=== PATIENT | female | born 1945 | race Caucasian/White ===

== ENCOUNTER → 2017-11-20 | Outpatient (CLI) | payer MEDICARE, OTHER ==
[~2017-11-20] MED LIST: AMBIEN 10MG10 MG PO; CALCIUM600 M2 PO; CELEBREX 200MG200 MG PO; ELITE MAGNESIUM1 TAB PO; FLONASE NASAL S16 GM NS; INDERAL LA 80MG80 MG PO; MUCINEX 60600 MG/TA1 PO; NEXIUM 40MG40 MG PO; PERCOCET 325 MG1 TA2 PO; ROBAXIN 50500 MG/TAB PO; SINGULAIR 110 MG/TAB PO; ULTRAM 50MG TAB50 MG PO; VITAMIN D1000 IU PO; ZYRTEC 10MG10 MG PO
== END ==
LOC: MC.RAD 11:10
DX: Z12.31 Encounter for screening mammogram for malignant neoplasm of breast (principal)

== ENCOUNTER 2018-06-27 09:55 | Emergency (ER) | payer MEDICARE, OTHER ==
[~2018-06-27] VITALS: Ht 160 cm; Wt 90.9 kg
[2018-06-27 09:59] VITALS: TEMP 98
[2018-06-27 11:37] VITALS: BP 145/68; PULSE 71
== END 2018-06-27 11:37 | disposition home or self-care (01) ==
LOC: COL.ER 09:55
DX: M54.6 Pain in thoracic spine (principal); M79.7 Fibromyalgia; G89.29 Other chronic pain; M54.5 Low back pain; Z79.51 Long term (current) use of inhaled steroids

== ENCOUNTER → 2019-05-04 | Outpatient (CLI) | payer MEDICARE, OTHER | LOC: MC.RAD 10:55 | DX: Z12.31 Encounter for screening mammogram for malignant neoplasm of breast (principal) ==

== ENCOUNTER → 2021-11-28 | Outpatient (CLI) | payer MEDICARE, OTHER | LOC: MC.RAD 11:14 | DX: Z12.31 Encounter for screening mammogram for malignant neoplasm of breast (principal) ==

== ENCOUNTER 2022-07-03 09:21 | Inpatient (IN) | payer MEDICARE, OTHER ==
[~2022-07-03] VITALS: Ht 160 cm; Wt 84.1 kg
[2022-07-03] VITALS (335 sets, daily range): BP systolic 144; BP diastolic 71; PULSE 64; TEMP 97.9; O2SAT 92–100
[2022-07-03 09:52] LABS: BASO # 0.1 K/mm3 (0.0-0.2); BASO % 0.7 % (0.0-2.0); EOS # 0.2 K/mm3 (0.0-0.7); EOS % 2.7 % (0.0-4.0); GRAN # 4.1 K/mm3 (1.4-6.5); GRAN % 55.7 % (42.2-75.2); HEMATOCRIT 42.2 % (37.0-47.0); HEMOGLOBIN 14.4 g/dl (12.5-16.0); LYMPH # 2.4 K/mm3 (1.2-3.4); LYMPH % 32.6 % (20.0-51.0); MEAN CELL VOLUME 92 fl (80.0-100.0); MEAN CORPUSCULAR HEMOGLOBIN 31 pg (27-31); MEAN CORPUSCULAR HGB CONC 34 g/dl (33.0-37.0); MEAN PLATELET VOLUME 10.8 fl (7.4-10.4); MONO # 0.6 K/mm3 (0.1-0.6); PLATELET COUNT 272 K/mm3 (130-400); RED BLOOD COUNT 4.59 M/mm3 (4.10-5.30); REDCELL DISTRIBUTION WIDTH-CV 13.3 % (11.5-14.5)
[2022-07-03 10:07] LABS: CREATININE, serum 0.67 mg/dL (0.57-1.11); POTASSIUM 3.8 mmol/L (3.5-4.5)
[2022-07-03 10:16] LABS: TROPONIN-I 0.056 ng/mL (0.00-0.033)
[2022-07-03] MEDS ORDERED: ATARAX 25MG25 MG/TAB PO (12:42)
[2022-07-03 13:20] LABS: PROTHROMBIN TIME 11.5 SECONDS (9.7-12.8)
[2022-07-03 13:23] LABS: PARTIAL THROMBOPLASTIN TIME 32.4 SECONDS (26.0-37.0)
[2022-07-03 13:55] LABS: CREATINE KINASE 36 U/L (29-168); MAGNESIUM 1.8 mg/dL (1.6-2.6)
[2022-07-03 14:03] LABS: TROPONIN-I < 0.010 ng/mL (0.00-0.033)
--- NOTE | 2022-07-03 18:20 | NUR ---
PT ADMITTED FROM ED WITH CP AND HTN. PT AMBULATED TO BED. PT IS AXOX4. PT SET UP TO MONITOR AND TELE. PT IS SR ON TELE. PT OFF CARDENE AND ON HEPARIN AT 1000 UNITS/HR. PT ORIENTED TO ROOM AND FLOOR. PT INSTRUCTED TO CALL WITH ALL NEEDS AND NOT TO GET UP ALONE.
[2022-07-04] VITALS (646 sets, daily range): BP systolic 143–178; BP diastolic 72–82; PULSE 64–112; TEMP 97.8–98; O2SAT 92–100
--- NOTE | 2022-07-04 01:12 | NUR ---
REPORT RECEIVED FROM GANGA CHATMAN. ASSUMED CARE OF PT AT THIS TIME. PT CURRENTLY ASLEEP IN BED. VSS. WILL CONTINUE TO MONITOR.
[2022-07-04 03:31] LABS: BASO % 0.5 % (0.0-2.0); EOS # 0.2 K/mm3 (0.0-0.7); EOS % 2.7 % (0.0-4.0); GRAN # 3.9 K/mm3 (1.4-6.5); GRAN % 47.1 % (42.2-75.2); HEMATOCRIT 39.1 % (37.0-47.0); HEMOGLOBIN 13.5 g/dl (12.5-16.0); LYMPH # 3.4 K/mm3 (1.2-3.4); LYMPH % 41.1 % (20.0-51.0); MEAN CELL VOLUME 91 fl (80.0-100.0); MEAN CORPUSCULAR HEMOGLOBIN 32 pg (27-31); MEAN CORPUSCULAR HGB CONC 35 g/dl (33.0-37.0); MEAN PLATELET VOLUME 10.9 fl (7.4-10.4); MONO # 0.7 K/mm3 (0.1-0.6); MONO % 8.4 % (1.7-9.3); PLATELET COUNT 236 K/mm3 (130-400); RED BLOOD COUNT 4.28 M/mm3 (4.10-5.30); REDCELL DISTRIBUTION WIDTH-CV 13.2 % (11.5-14.5)
[2022-07-04 04:02] LABS: ANION GAP 11 mmol/L (7-16); BLOOD UREA NITROGEN 13 mg/dL (10-20); CALCIUM 8.4 mg/dL (8.4-10.2); CARBON DIOXIDE 24 mmol/L (23-31); CHLORIDE 107 mmol/L (98-107); CHOLESTEROL 180 mg/dL (0-199); CHOLESTEROL RISK RATIO 5.1; CREATININE, serum 0.59 mg/dL (0.57-1.11); GLUCOSE 104 mg/dL (70-99); HDL CHOLESTEROL 35 mg/dL (40-60); LDL CHOLESTEROL 126 mg/dL; MAGNESIUM 1.8 mg/dL (1.6-2.6); POTASSIUM 3.9 mmol/L (3.5-4.5); SODIUM 142 mmol/L (136-145); TRIGLYCERIDE 94 mg/dL (0-149)
[2022-07-04 04:09] LABS: TROPONIN-I < 0.010 ng/mL (0.00-0.033)
--- NOTE | 2022-07-04 05:51 | NUR ---
PT STATES BLOOD PRESSURE CUFF CAUSES EXCRUCIATING PAIN. DOES NOT WANT IT TAKEN EVERY HOUR. WILL TAKE NEEDED FOR VITAL SIGNS OR IF CHANGE IN STATUS/NEW CHEST PAIN.
--- NOTE | 2022-07-04 09:22 | NUR ---
BEDSIDE REPORT RECEIVED FROM GANGA DURAN. PT IS RESTING IN BED AT THIS TIME. HEPARIN DRIP INFUSING AT 900U/HR. PT HAS BEEN NPO SINCE MIDNIGHT AWAITING CARDIAC STRESS TEST. PT DENIES NEEDS AT THIS TIME, CALL LIGHT IN REACH.
[2022-07-04] MEDS ORDERED: ALTACE 10MG TAB10 MG PO (12:38)
--- NOTE | 2022-07-04 13:43 | NUR ---
PT DISCHARGED AMBULATORY TO HOME W/ AT 1315. PT INSTRUCTED TO SECOND GRADE TEACHER NEW PRESCRIPTION AND TAKE DIRECTED AND TO SCHEDULE FOLLOW UP W/ PCP IN ONE WEEK. PT VERBALIZED UNDERSTANDING.
--- NOTE | 2022-07-04 14:52 | NUR ---
car worker helper met with patient and her spouse to discuss discharge planning. Patient states that she is independent with her activities of daily living and plans to return home, possibly today, without concern. Patient states that her primary care provider is Dr Stephens and that she has advance directives completed. No unmet needs identified at this time.
== END 2022-07-04 13:44 | disposition home or self-care (01) | DRG 282 ==
LOC: COL.ER 09:21 → ICU 12:26 → EDBEDREQ 17:55 → COL.ER 17:59 → ICU 17:59
PROVIDERS: Emergency Medicine; ADMIT Hospitalist
DX: I16.1 Hypertensive emergency (principal); I21.A1 Myocardial infarction type 2; M79.7 Fibromyalgia; Z96.653 Presence of artificial knee joint, bilateral; I10 Essential (primary) hypertension; E78.5 Hyperlipidemia, unspecified; F32.A Depression, unspecified; I34.0 Nonrheumatic mitral (valve) insufficiency; F41.9 Anxiety disorder, unspecified; M19.90 Unspecified osteoarthritis, unspecified site; Z90.89 Acquired absence of other organs; Z72.89 Other problems related to lifestyle; Z87.891 Personal history of nicotine dependence
CPT/HCPCS: A9500; J1644; J2785; J3010; J7050; Q9967